=== PATIENT | female | born 2000 | race Two or more races ===

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

== ENCOUNTER 2025-06-30 19:23 | Emergency (ER) | payer MEDICAID ==
[~2025-06-30] VITALS: Ht 162.6 cm; Wt 85.1 kg
--- NOTE | 2025-06-30 20:30 | ED.PDOC ---
History of Present Illness(SKN HPI Comments 24-year-old female presents with 2 day history of right lower quadrant abdominal abscess, with associated pain, swelling, redness, and discharge. The patient endorses on symptoms getting progressively worse following initial onset after noticing abscess. She suspects possible insect bite. Denies any fever, nausea, vomiting, further associated symptoms. Vital signs were stable on arrival. Chief Complaint: Insect Bite Time Seen by MD: 19:50 Primary Care Provider: ONEIL History of Present Illness: Nurses Notes, Medications, Allergies Allergies: Coded Allergies: NO KNOWN ALLERGIES (Unverified , 11/24/11) Information Source: Patient Mode of Arrival: Ambulatory Severity: Moderate Timing: Days Duration: Since onset Prehospital treatment: None Location: Abdomen Mechanism: Spontaneous Onset Object: None Condition of Object: Dirty Tetanus: >5 Years Associated Signs and Symptoms: Redness, Swelling, Pus, None Past Medical History PAST MEDICAL HISTORY: Denies Surgical History: Denies all surgeries CROP QUANTITATIVE GENETICIST History: Denies all CROP QUANTITATIVE GENETICIST Hx Family History Family History: Unknown Social History Smoker: Non-Smoker Alcohol: Denies ETOH Use Drugs: Denies Drug Use Lives In: Home Constitutional: denies: chills, diaphoresis, fatigue, fever, malaise, sweats, weakness, others EENTM: denies: blurred vision, double vision, ear bleeding, ear discharge, ear drainage, ear pain, ear ringing, eye pain, eye redness, hearing loss, mouth pain, mouth swelling, nasal discharge, nose bleeding, nose congestion, nose pain, photophobia, tearing, throat pain, throat swelling, voice changes, others Respiratory: denies: cough, hemoptysis, orthopnea, SOB at rest, shortness of breath, SOB with excertion, stridor, wheezing, others Cardiovascular: denies: chest pain, dizzy spells, diaphoresis, Dyspnea on exertion, edema, irregular heart beat, left arm pain, lightheadedness, palpitations, PND, syncope, others Gastrointestinal: denies: abdomen distended, abdominal pain, blood streaked bowels, constipated, diarrhea, dysphagia, difficulty swallowing, hematemesis, melena, nausea, poor appetite, poor fluid intake, rectal bleeding, rectal pain, vomiting, others Genitourinary: denies: abnormal vagina bleeding, burning, dyspareunia, dysuria, flank pain, frequency, hematuria, incontinence, pain, , vagina discharge, urgency, others Neurological: denies: dizziness, fainting, headache, left sided numbness, left sided weakness, numbness, paresthesia, pre-existing deficit, right sided numbness, right sided weakness, seizure, speech problems, tingling, tremors, weakness, others Musculoskeletal: denies: back pain, gout, joint pain, joint swelling, muscle pain, muscle stiffness, neck pain, others Integumetry: reports: wounds (Patient has a abscess of the right lower quadrant/pelvic region.); denies: bruises, change in color, change in hair/nails, dryness, laceration, lesions, lumps, rash, others Allergic/Immunocompromised: denies: Difficulty Healing, Frequent Infections, Hives, Itching, others Hematologic/Lymphatic: denies: anemia, blood clots, easy bleeding, easy bruising, swollen glands, others Endocrine: denies: excessive hunger, excessive sweating, excessive thirst, excessive urination, flushing, intolerance to cold, intolerance to heat, unexplained weight gain, unexplained weight loss, others Psychiatric: denies: anxiety, bipolar disorder, depression, hopeless, panic disorder, schizophrenia, sleepless, suicidal, others All Other Systems: Reviewed and Negative (Comprehensive review of systems are negative unless otherwise stated in HPI) Physical Exam General Appearance: Mild Distress (Mild distress due to skin abscess concerns.), Normal HEENT: Normal ENT Inspection, Pharynx Normal, TMs Normal Neck: Full Range of Motion, Non-Tender, Normal, Normal Inspection Respiratory: Chest Non-Tender, Lungs Clear, No Accessory Muscle Use, No Respiratory Distress, Normal Breath Sounds Cardiovascular: No Edema, No JVD, No Murmur, No Gallop, Normal Peripheral Pulses, Regular Rate/Rhythm Breast Exam: Deferred Gastrointestinal: No Organomegaly, Non Tender, No Pulsatile Mass, Normal Bowel Sounds, Soft Genitalia: Deferred Pelvic: Deferred Rectal: Deferred Extremities: No calf tenderness, Normal capillary refill, Normal inspection, Normal range of motion, Non-tender, No pedal edema Neurologic: Alert, No Motor Deficits, Normal Affect, Normal Mood, No Sensory Deficits Cerebellar Function: Normal Reflexes: Normal Skin: Wounds (Patient displays a half-dollar size weeping abscess at the right lower abdominal region. Localized erythema and edema. Serosanguineous discharge appreciated. No lymphangitis.) Lymphatic: No Adenopathy Was a procedure done? Was a procedure done?: No Differential Diagnosis (INTG) Differential Diagnosis: Cellulitis, Insect Envenomation, Puncture Wound, Other (Abscess) X-Ray, Labs, Meds, VS Vital Signs Date Time Temp Pulse Resp B/P (MAP) Pulse Ox O2 Delivery O2 Flow Rate FiO2 06/30/25 21:36 98.4 88 19 119/78 (92) 95 98.4 06/30/25 21:36 88 19 95 Room Air 06/30/25 19:27 97.8 93 16 121/78 97 97.8 Current Medications Medications (Trade) Dose Ordered Sig/Beth Route Start Time Stop Time Status Last Admin Diphtheria/ Tetanus/Acell Pertussis (Boostrix T-Dap) 0.5 ml ONCE ONCE IM 06/30/25 20:00 06/30/25 20:01 DC 06/30/25 21:26 Trimethoprim/ Sulfamethoxazole (Bactrim Ds Tablet) 1 tab ONCE ONCE PO 06/30/25 20:00 06/30/25 20:01 DC 06/30/25 21:25 Ketorolac Tromethamine (Toradol Injection) 30 mg ONCE ONCE IM 06/30/25 20:00 06/30/25 20:01 DC 06/30/25 21:25 X-Ray, Labs, Meds, VS Comment Spent time discussing the injury with the patient. 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 Patient should keep the wound clean and covered. Time of 1ST Reevaluation: 23:19 Reevaluation 1ST: Improved Consultation: PCP Patient Education/Counseling: Diagnosis, Treatment, Need For Follow Up Family Education/Counseling: Diagnosis, Treatment, No Family Present SEPSIS Sepsis Screen Date sepsis recognized/suspect: Jun 30, 2025 Time Sepsis recognized/suspect: 1930 Recent Procedure: No On Antibiotic Therapy: No Respiratory Rate >20: No Heart Rate >90: No Temp<36 C (96.8 F) or >38.3 C: No SBP <90 or MAP <65 mmHG: No New Acute Mental Status Change: No Is the patient on CPAP, BIPAP,: No Vital Signs Date Time Temp Pulse Resp B/P (MAP) Pulse Ox O2 Delivery O2 Flow Rate FiO2 06/30/25 21:36 98.4 88 19 119/78 (92) 95 98.4 06/30/25 21:36 88 19 95 Room Air 06/30/25 19:27 97.8 93 16 121/78 97 97.8 Medications Medications Dose Ordered Sig/Beth Route Start Time Stop Time Status Last Admin Dose Admin Diphtheria/ Tetanus/Acell Pertussis 0.5 ml ONCE ONCE IM 06/30/25 20:00 06/30/25 20:01 DC 06/30/25 21:26 Ketorolac Tromethamine 30 mg ONCE ONCE IM 06/30/25 20:00 06/30/25 20:01 DC 06/30/25 21:25 Trimethoprim/ Sulfamethoxazole 1 tab ONCE ONCE PO 06/30/25 20:00 06/30/25 20:01 DC 06/30/25 21:25 Departure 1 Departure Time of Disposition: 23:19 Impression: Primary Impression: Abscess Disposition: HOME / SELF CARE / HOMELESS Condition: Stable Additional Instructions: Advised patient utilize antibiotics as directed until completion as well as pain medication as needed. Patient should keep the wound clean and covered until healthy tissue is expressed. e-Prescriptions Ibuprofen Micronized (Ibuprofen) 800 Mg Tab 800 MG PO Q8HP PRN, #20 TAB Prov: SHARMIN GEORGE PAC 06/30/25 Sulfamethoxazole W/Trimethopri (Bactrim Ds Tablet) 1 Tab Tb 1 TAB PO BID for 10 Days, #20 TAB Prov: SHARMIN GEORGE PAC 06/30/25 Discharged With: Self, Friend Critical Care Note Critical Care Time?: No Stability Stability form required: No Heart Score Heart Score: Heart Score Response (Comments) Value History N/A 0 EKG N/A 0 Age N/A 0 Risk Factors N/A 0 Troponin N/A 0 Total 0 I personally scribed for SHARMIN GEORGE PAC ([email or web address]) on 06/30/25 at 20:30. Electronically submitted by Andres Perez ([email or web address]). SHARMIN GEORGE PAC Jun 30, 2025 20:30
[2025-06-30] MEDS: SULFAMETHOX W/TRIMETH(800/160MG) DS TAB PO ONE (21:25)
[2025-06-30] MEDS: KETOROLAC TROMETH 60MG/2ML VIAL IM ONE (21:25)
[2025-06-30] MEDS: TETANUS-DIPTH-ACEL PERTUSSIS 0.5ML SYR Tdap IM ONE (21:26)
[2025-06-30 21:36] VITALS: BP 119/78; PULSE 88; RESP 19; TEMP 98.4; O2SAT 95
[2025-06-30] MEDS ORDERED: BACDST PO (23:21)
[2025-06-30] MEDS ORDERED: IBUP-1455 PO (23:21)
== END 2025-06-30 23:34 | disposition home or self-care (01) ==
LOC: ER 19:23
DX: L02.211 Cutaneous abscess of abdominal wall (principal)
CPT/HCPCS: 90471; 90715; 96372; 99284; J1885